=== PATIENT | female | born 1980 | race Caucasian/White ===

== ENCOUNTER 2018-10-10 15:50 | Emergency (ER) | payer SELFPAY ==
[~2018-10-10] VITALS: Ht 170.2 cm; Wt 65.0 kg
[2018-10-10 17:58] VITALS: BP 119/81
== END 2018-10-10 20:05 | disposition left against medical advice (07) ==
LOC: ER 16:59
DX: Z53.21 Procedure and treatment not carried out due to patient leaving prior to being seen by health care provider (principal)

== ENCOUNTER 2018-10-11 12:17 | Emergency (ER) | payer SELFPAY ==
[~2018-10-11] VITALS: Ht 167.6 cm; Wt 69.0 kg
[2018-10-11 13:51] LABS: BASOPHILS % 1.2 % (0.0-2.0); EOSINOPHILS % 0.4 % (0.0-5.0); HEMATOCRIT. 37.3 % (36.0-48.0); HEMOGLOBIN. 12.7 g/dL (12.0-16.0); LYMPHOCYTES % 32.1 % (20.0-50.0); MEAN CORPUSCULAR HEMOGLOBIN 31.9 pg (28.0-32.0); MEAN CORPUSCULAR VOLUME 93.4 fL (81.0-99.0); MEAN PLATELET VOLUME 9.1 fl (7.4-10.4); MONOCYTES % 8.1 % (2.0-8.0); NEUTROPHILS % 58.2 % (40.0-76.0); PLATELET 209 x1000/uL (130-400); RED BLOOD CELL COUNT 3.99 mill/uL (4.2-5.4); RED CELL DISTRIBUTION WIDTH 15.9 % (11.6-14.6)
[2018-10-11 13:54] LABS: CHLORIDE 111 mEq/L (98-107)
[2018-10-11 15:32] VITALS: BP 121/78
== END 2018-10-11 15:38 | disposition home or self-care (01) ==
LOC: ER 12:17
DX: R07.89 Other chest pain (principal); R06.02 Shortness of breath; R20.0 Anesthesia of skin
CPT/HCPCS: 36415; 71045; 81025; 83880; 84484; 85379; 93005; 99284